=== PATIENT | male | born 1965 | race American Indian/Alaskan Native ===

== ENCOUNTER 2018-09-23 16:13 | Emergency (ER) | payer MEDICARE ==
--- NOTE | 2018-09-23 16:30 | Emergency Department Report ---
Blank Doc - Documentation Documentation: 52 y o male in a rehab center said he had 1 bottle of beer while at the grocery store states when he got [place] to his [place], he was sent to [facility] for cleanse UDS, if clean, cleared to go back to
--- NOTE | 2018-09-23 19:02 | Emergency Department Report ---
ED Medical Clearance HPI - General Chief complaint: Medical Clearance Stated complaint: MEDICAL CLEARANCE Time Seen by Provider: 09/23/18 16:25 Source: patient Mode of arrival: Ambulatory Limitations: No Limitations - History of Present Illness Initial comments: This is a 52-year-old gentleman. The patient is not known to this provider previously. He is sent to the emergency room by local outpatient facility for medical clearance after consuming alcohol. The patient states he was consuming alcohol recreationally, and because it was very hot out. He is not homicidal. He is not suicidal. He denies coingestions. He has chronic lower back pain. It is now resolved. He has no complaints at this time. He is watching television, and listening to his headphones on his portable CD player. MD Complaint: medical clearance request -: This afternoon Reason for Medical Clearance: other Place: street Alledged Intoxication: No Compliant with Home Medications: Yes Traumatic Symptoms: denies traumatic injury Allergies/Adverse reactions: Allergies Allergy/AdvReac Type Severity Reaction Status Date / Time No Known Allergies Allergy Unverified 09/23/18 16:14 ED Review of Systems ROS: Stated complaint: MEDICAL CLEARANCE Other details as noted in HPI Constitutional: denies: fever Eyes: denies: eye discharge Respiratory: denies: cough Cardiovascular: denies: chest pain Gastrointestinal: denies: abdominal pain Genitourinary: denies: dysuria Musculoskeletal: back pain Neurological: denies: weakness Psychiatric: denies: auditory hallucinations, visual hallucinations, homicidal thoughts, suicidal thoughts ED Past Medical Hx - Past Medical History Previous Medical History?: No - Surgical History Past Surgical History?: No - Social History Smoking Status: Never Smoker Substance Use Type: Alcohol ED Physical Exam - General Limitations: No Limitations General appearance: alert, anxious, obese - Head Head exam: Present: atraumatic, normocephalic - Eye Eye exam: Present: normal appearance, EOMI, other (visual acuity intact to finger counting, color perception, reading at a close distance). Absent: nystagmus - ENT ENT exam: Present: normal exam, normal orophraynx, mucous membranes moist, normal external ear exam - Neck Neck exam: Present: normal inspection, full ROM. Absent: tenderness, meningismus - Respiratory Respiratory exam: Present: normal lung sounds bilaterally. Absent: respiratory distress - Cardiovascular Cardiovascular Exam: Present: normal rhythm, tachycardia, normal heart sounds. Absent: systolic murmur, diastolic murmur, rubs, gallop - GI/Abdominal GI/Abdominal exam: Present: soft. Absent: distended, tenderness, guarding, rebound, rigid, pulsatile mass - Rectal Rectal exam: Present: deferred - Extremities Exam Extremities exam: Present: normal inspection, full ROM, other (2+ pulses noted in the bilateral upper, lower extremities. Compartments soft. No long bony tenderness. The pelvis is stable.). Absent: pedal edema, calf tenderness - Back Exam Back exam: Present: normal inspection, full ROM. Absent: tenderness, CVA tenderness (R), CVA tenderness (L), paraspinal tenderness, vertebral tenderness - Neurological Exam Neurological exam: Present: alert, oriented X3, normal gait, other (Extraocular movements intact. Tongue midline. No facial droop. Facial sensation intact to light touch in the V1, V2, V3 distribution bilaterally. 5 and 5 strength in 4 extremities.. Sensation is intact to light touch in 4 extremities.). Absent: motor sensory deficit - Psychiatric Psychiatric exam: Present: anxious - Skin Skin exam: Present: warm, dry, intact, normal color. Absent: rash ED Course Vital Signs 09/23/18 09/23/18 16:25 19:26 Temperature 98.5 F Pulse Rate 116 H 74 Respiratory 16 18 Rate Blood Pressure 141/87 Blood Pressure 143/72 [Right] O2 Sat by Pulse 98 100 Oximetry ED Medical Decision Making - Lab Data Vital Signs 09/23/18 16:25 Temperature 98.5 F Pulse Rate 116 H Respiratory 16 Rate Blood Pressure 141/87 O2 Sat by Pulse 98 Oximetry Lab Results 09/23/18 Range/Units 16:42 Plasma/Serum Alcohol 0.03 (0-0.07) % - Medical Decision Making Differential diagnosis, including but not limited to: Alcohol consumption, Gen. medical clearance, chronic musculoskeletal back pain, anxiety Assessment and plan: 52-year-old gentleman who by himself does not have any acute medical complaints, with a request for medical clearance after recreational alcohol consumption. The patient is clinically sober at this time. His tachycardia has resolved. His physical exam is unremarkable. He is watching television at this time and listening to music on his portable CD player. A urine toxicology screen is not medically indicated at this time, as the patient in my opinion is sober, and a urine drug screen would not change medical decision-making or medical management at this time. The patient does not appear to have an emergent medical or psychiatric condition at this time, and he is medically suitable for discharge. ED Disposition Clinical Impression: General medical exam Disposition: DC-01 TO HOME OR SELFCARE Is pt being admited?: No Does the pt Need Aspirin: No Condition: Good Additional Instructions: Continue outpatient medications. Follow up with your primary care doctor within the next month to 6 weeks. Avoid consumption of alcohol and intoxicating substances. Return to the emergency room right away with new, worsening or different symptoms, or symptoms not present on the initial emergency room evaluation. Referrals: KIRILL STALLINGS MD [Primary Care Provider] - 3-5 Days [facility] [Provider Group] - 3-5 Days
[2018-09-23 19:27] VITALS: BP 143/72
== END 2018-09-23 19:27 | disposition home or self-care (01) ==
LOC: ED 16:13
DX: F41.9 Anxiety disorder, unspecified (principal); M54.9 Dorsalgia, unspecified; G89.29 Other chronic pain
CPT/HCPCS: 36415; 99283; G0480; 80320